=== PATIENT | female | born 1945 | race Caucasian/White ===

== ENCOUNTER 2025-06-16 09:25 | Emergency (ER) | payer MEDICARE, MEDICAID ==
[~2025-06-16] VITALS: Ht 154.9 cm; Wt 58.0 kg
[2025-06-16 09:45] VITALS: TEMP 37.1; O2SAT 98
[2025-06-16] MEDS ORDERED: HYDR453.3 TP (11:38)
[2025-06-16 11:59] VITALS: BP 127/79; PULSE 83; RESP 16; O2SAT 97
== END 2025-06-16 12:05 | disposition home or self-care (01) ==
LOC: ER 09:25
DX: S81.052A Open bite, left knee, initial encounter (principal); S81.051A Open bite, right knee, initial encounter; S51.852A Open bite of left forearm, initial encounter; S51.851A Open bite of right forearm, initial encounter; E11.9 Type 2 diabetes mellitus without complications; Z98.890 Other specified postprocedural states; W57.XXXA Bitten or stung by nonvenomous insect and other nonvenomous arthropods, initial encounter; Y93.89 Activity, other specified; Y92.89 Other specified places as the place of occurrence of the external cause; Y99.8 Other external cause status
CPT/HCPCS: 99283